=== PATIENT | male | born 1995 | race Caucasian/White ===

== ENCOUNTER 2019-04-29 22:48 | Emergency (ER) | payer MEDICAID ==
[2019-04-29] MEDS ORDERED: Sulfamethoxazole/TMP 800/160mg Tab PO ONE (23:19)
[2019-04-29] MEDS ORDERED: Sulfamethoxazole/TMP 800/160mg Tab ONE (23:26)
--- NOTE | 2019-04-29 23:26 | ED Physician Chart ---
ED Chief Complaint/HPI - Patient Information Date Seen:: 04/29/19 Time Seen:: 23:05 Chief Complaint:: redness, swelling and pain right earlobe History of Present Illness:: Patient has had redness, swelling and pain right earlobe for 2 days. For his entire life years he has had a palpable mass in his right earlobe. Allergies:: Allergies Allergy/AdvReac Type Severity Reaction Status Date / Time No Known Allergies Allergy Verified 04/29/19 22:57 Vitals:: Vital Signs - 8 hr 04/29/19 22:59 Temp 98.6 F HR 77 RR 18 BP 147/81 O2 Sat % 97 Historian:: Patient Review:: Nurse's Note Reviewed ED Review of Systems - Review of Systems General/Constitutional: No fever, No chills Skin: Skin lesions Head: No headache Eyes: No loss of vision ENT: Other (see history and physical) Neck: No neck pain, No stiffness Cardio Vascular: No chest pain, No palpitations Pulmonary: No SOB GI: No nausea, No vomiting, No diarrhea Musculoskeletal: No bone or joint pain Endocrine: No polyuria Psychiatric: No prior psych history Hematopoietic: No bruising Allergic/Immuno: No urticaria Neurological: No syncope ED Past Medical History - Past Medical History Past Medical History: No significant medical hx Family Medical History - Family Member Mother History Unknown: Yes ED Physical Exam - Physical Examination General/Constitutional: Well-developed, well-nourished, Alert, No distress Head: Atraumatic Eyes: Lids, conjuctiva normal Skin: No rash ENMT: Nasal exam nl, Lips, teeth, gums nl Other ENMT comments:: Right ear: There is redness and swelling of the right earlobe. On the posterior aspect of the right earlobe there is a 2 mm area of induration Neck: No nuchal rigidity Respiratory: Nl effort/Exclusion, Clear to Auscultation ED Assessment - Assessment General Assessment: Patient mentioned that he's had a mass in the right earlobe his entire life which is probably a cyst which got infected. He just the patient continue warm compresses - Procedures Procedures:: Posterior right ear lobe cleansed with Betadine solution; 1% Xylocaine for local anesthesia into the area of induration; 4 mm incision made with #10 scalpel; blood without pus out; probed gently with sterile Iris scissors; irrigated with normal saline; pressure applied with 4 x 4's for about 10 minutes to stop the bleeding; dressing with folded 2 x 2's and paper tape. ED Septic Shock - . Is Septic Shock (SBP<90, OR Lactate>4 mmol\L) present?: No - <6hrs of presentation: Vital Signs: Vital Signs - 8 hr 04/29/19 22:59 Temp 98.6 F HR 77 RR 18 BP 147/81 O2 Sat % 97 ED Reassessment (Disposition) - Reassessment Reassessment Condition:: Unchanged - Diagnosis Diagnosis:: Abscess and cellulitis right earlobe - Aftercare/Follow up Instructions Aftercare/Follow-Up Instructions:: Refer to Discharge Instructions Medication Prescribed:: Bactrim double strength #14 to take 1 twice a day - Patient Disposition Discharge/Transfer:: Home Condition at Disposition:: Stable, Unchanged
== END 2019-04-29 23:44 | disposition home or self-care (01) ==
LOC: ER 22:48
DX: H60.01 Abscess of right external ear (principal); H60.11 Cellulitis of right external ear
CPT/HCPCS: Z7610